=== PATIENT | male | born 1985 | race Caucasian/White ===

== ENCOUNTER 2018-12-15 09:34 | Emergency (ER) | payer SELFPAY ==
[~2018-12-15] VITALS: Ht 175.3 cm; Wt 71.0 kg
[~2018-12-15 09:34] MED LIST: ALBU18HF INH; ATOM10CA PO; PALI3TAB2 PO
[2018-12-15 09:45] VITALS: BP 98/67
[2018-12-15] MEDS ORDERED: KETOROLAC 30 MG/1 ML ONE (10:04)
--- NOTE | 2018-12-15 10:16 | NUR ---
MEDICATED PER ORDERS FOR NECK AND LOW BACK PAIN
[2018-12-15] MEDS ORDERED: KETOROLAC 30 MG/1 ML IM ONE (10:30)
--- NOTE | 2018-12-15 10:52 | NUR ---
SOME IMPROVEMENT IN PAIN SINCE MEDICATED
== END 2018-12-15 11:00 | disposition home or self-care (01) ==
LOC: ED 10:17
DX: S16.1XXA Strain of muscle, fascia and tendon at neck level, initial encounter (principal); J45.909 Unspecified asthma, uncomplicated; F31.9 Bipolar disorder, unspecified; F20.9 Schizophrenia, unspecified; Z87.891 Personal history of nicotine dependence; X58.XXXA Exposure to other specified factors, initial encounter; Y93.89 Activity, other specified; Y92.89 Other specified places as the place of occurrence of the external cause; Y99.8 Other external cause status
CPT/HCPCS: 96372; 99283; J1885

== ENCOUNTER 2020-02-06 11:23 | Emergency (ER) | payer MEDICAID, OTHER ==
[~2020-02-06] VITALS: Ht 177.8 cm; Wt 67.4 kg
--- NOTE | 2020-02-06 12:04 | NUR ---
PT STATES ETOH ABUSE FOR 5 YEARS. STATES LAST DRINK THIS AM. STATES WANTS ETOH DETOX TODAY. PT STATES DEPRESSION, HOWEVER DENIES ANY SI/HI. PT'S MOTHER AT BEDSIDE. PT IN GOWN, PLACED ON MONITORS. ER PA-C AT BEDSIDE. WILL FOLLOW ORDERS.
[2020-02-06] MEDS ORDERED: THIAMINE 100MG TABLET PO ONE (12:30)
[2020-02-06] MEDS ORDERED: THIAMINE 100MG TABLET ONE (12:31)
[2020-02-06 12:32] LABS: BASOPHILS # (AUTO) 0.02 x10^3/uL (0-0.1); BASOPHILS % (AUTO) 1 % (0-1); EOSINOPHILS # (AUTO) 0.01 x10^3/uL (0-0.4); EOSINOPHILS % (AUTO) 0 % (1-7); LYMPHOCYTES # (AUTO) 1.58 x10^3/uL (1-3.4); LYMPHOCYTES % (AUTO) 32 % (22-44); MD NO; MEAN CORPUSCULAR HEMOGLOBIN 32.6 pg (27.5-34.5); MEAN CORPUSCULAR HGB CONC 34.5 g/dL (33.2-36.2); MEAN CORPUSCULAR VOLUME 94.6 fL (81-97); MEAN PLATELET VOLUME 6.8 fL (7.4-10.4); MONOCYTES # (AUTO) 0.47 x10^3/uL (0.2-0.8); MONOCYTES % (AUTO) 9 % (2-9); NEUTROPHILS % (AUTO) 58 % (42-75); PLATELET COUNT 300 x10^3/uL (130-400); RED BLOOD COUNT 5.08 x10^6/uL (4.38-5.82)
[2020-02-06 12:43] LABS: ALANINE AMINOTRANSFERASE 60 U/L (12-78); ALBUMIN 3.8 g/dL (3.4-5.0); ANION GAP 8 mmol/L (5-15); CALCIUM 8.8 mg/dL (8.5-10.1); CHLORIDE 106 mmol/L (98-107); CREATININE 0.94 mg/dL (0.7-1.3)
[2020-02-06 12:45] LABS: ALKALINE PHOSPHATASE 92 U/L (45-117); BILIRUBIN,TOTAL 1.1 mg/dL (0.2-1.0); TOTAL PROTEIN 7.1 g/dL (6.4-8.2)
--- NOTE | 2020-02-06 13:10 | NUR ---
PT RESTING IN BED, REMAINS ON MONIORS, VSS. PT'S MOTHER REMAINS AT BEDSIDE. CONT TO MONITOR.
--- NOTE | 2020-02-06 14:23 | NUR ---
PT OK FOR D/C. PT VSS, ABLE TO CARE FOR SELF, ABLE TO AMBULATE ON OWN. PT GIVEN D/C RESOURCES FOR OUTPT DETOX.
[2020-02-06 14:27] VITALS: BP 115/72
== END 2020-02-06 14:29 | disposition home or self-care (01) ==
LOC: ED 14:12
DX: F10.220 Alcohol dependence with intoxication, uncomplicated (principal); R11.2 Nausea with vomiting, unspecified; F20.9 Schizophrenia, unspecified; J45.909 Unspecified asthma, uncomplicated; Y90.9 Presence of alcohol in blood, level not specified
CPT/HCPCS: 36415; 80053; 80307; 83690; 85025; 99283

== ENCOUNTER 2020-02-07 03:59 | Emergency (ER) | payer MEDICAID ==
[~2020-02-07] VITALS: Ht 177.8 cm; Wt 68.5 kg
[2020-02-07 04:02] VITALS: BP 127/94
== END 2020-02-07 05:46 ==
LOC: ED 05:35
DX: R06.02 Shortness of breath (principal); R05 Cough; Z53.21 Procedure and treatment not carried out due to patient leaving prior to being seen by health care provider
CPT/HCPCS: 71045; 93005; 99283